=== PATIENT | female | born 2000 | race Caucasian/White ===

== ENCOUNTER → 2021-01-10 14:40 | Outpatient (CLI) | payer OTHER, SELFPAY | PROVIDERS: Visit Provider Nurse Practitioner Family | DX: Z20.822 Contact with and (suspected) exposure to COVID-19 (principal); U07.1 COVID-19 | CPT/HCPCS: C9803; U0003; U0005 ==

== ENCOUNTER → 2022-01-25 11:06 | Outpatient (CLI) | payer OTHER, SELFPAY | PROVIDERS: PCP Emergency Medicine; Visit Provider Nurse Practitioner Obstetrics & Gynecology | DX: Z32.01 Encounter for pregnancy test, result positive (principal) | CPT/HCPCS: 36415; 84702 ==

== ENCOUNTER → 2022-02-10 06:45 | Outpatient (CLI) | payer OTHER, SELFPAY ==
[2022-02-14 21:26] LABS: Neisseria gonorrhoeae, NAA Negative (Negative)
== END ==
PROVIDERS: PCP Nurse Practitioner Obstetrics & Gynecology; Visit Provider Nurse Practitioner Obstetrics & Gynecology
DX: Z34.90 Encounter for supervision of normal pregnancy, unspecified, unspecified trimester (principal)
CPT/HCPCS: 87491; 87591

== ENCOUNTER → 2022-02-15 12:31 | Outpatient (CLI) | payer OTHER, SELFPAY ==
--- NOTE | 2022-02-15 12:32 | US_ITS ---
FINAL REPORT CLINICAL HISTORY: for dates FINDINGS: Sonographic images of the pelvis were obtained. A single, living intrauterine is noted. A yolk sac is present and measures 0.51 cm. [place] to rump length measures 26.5 mm which corresponds to 9 weeks 4 days gestation. Heartbeat is identified and measures 167 beats per minute. The right ovary measures 2.9 cm there is a 1.5 cm probable complex cyst in the right ovary. The left ovary is not visualized due to bowel gas. IMPRESSION: Single, living, intrauterine gestation with 9 weeks 4 days gestational age. Reviewed, Interpreted and Dictated by King Rogers III, MD Transcribed by Shanique Ellis Authenticated and [facility]
== END ==
LOC: RAD 12:32
PROVIDERS: PCP Emergency Medicine; Visit Provider Nurse Practitioner Obstetrics & Gynecology
DX: Z34.90 Encounter for supervision of normal pregnancy, unspecified, unspecified trimester (principal)
CPT/HCPCS: 76801

== ENCOUNTER → 2022-03-10 15:41 | Outpatient (CLI) | payer OTHER, BC, SELFPAY ==
[2022-03-10 16:52] LABS: Basophils % 0.3 % (0.1-2.0); Eosinophils # 0.1 K/mm3 (0.0-0.4); Eosinophils % 1.4 % (0.1-12.0); Hemoglobin 10.4 g/dL (12.2-16.2); Lymphocytes # 1.9 K/mm3 (0.7-4.5); Lymphocytes % 21.8 % (10-50); Mean Corpuscular HGB Conc 34.7 g/dL (31.8-35.4); Mean Corpuscular Hemoglobin 31.7 pg (27.0-31.2); Mean Corpuscular Volume 91.4 fl (81-99); Mean Platelet Volume 7.7 fl (7.4-10.4); Monocytes # 0.4 K/mm3 (0.1-1.0); Monocytes % 4.1 % (1.7-9.3); Neutrophils # 6.4 K/mm3 (1.8-7.8); Neutrophils % 72.4 % (37.0-80.0); Platelet Count 457 K/mm3 (142-424); Red Blood Count 3.28 M/mm3 (4.20-5.40); Red Cell Distribution Width 13.1 % (11.5-17.5); White Blood Count 8.9 K/mm3 (4.5-13.0)
[2022-03-12 06:31] LABS: Rubella Antibodies, IgG <0.90 index (Immune >0.99)
[2022-03-12 18:06] LABS: Rapid Plasma Reagin Ab Titer Non Reactive (NonRea<1:1)
[2022-03-16 23:35] LABS: HIV Screen 4th Generation wRfx NON REACTIVE; Hepatitis B Surface Antigen NEGATIVE; Hepatitis C Antibody <0.1
== END ==
PROVIDERS: PCP Emergency Medicine; Visit Provider Nurse Practitioner Obstetrics & Gynecology
DX: Z34.90 Encounter for supervision of normal pregnancy, unspecified, unspecified trimester (principal)
CPT/HCPCS: 36415; 85025; 86593; 86703; 86762; 86850; 87340; 87380; G0432

== ENCOUNTER → 2022-05-06 12:46 | Outpatient (CLI) | payer BC, SELFPAY ==
--- NOTE | 2022-05-06 12:46 | US_ITS ---
FINAL REPORT CLINICAL HISTORY: 20 week anatomy scan;; please use anatomy template when dictating COMPARISON: 02/15/2022 FINDINGS: There is a single live intrauterine gestation. Presentation is variable . The cervix is closed and measures 3.6 cm. Placenta is posterior. movement is noted. heart rate is noted to be 153 beats per minute. Three-vessel cord with satisfactory umbilical cord insertion. Four-chamber heart is noted. brain and ventricles are unremarkable. Chest and diaphragm are unremarkable. ABDOMEN: Both kidneys are unremarkable. Stomach is unremarkable. SPINE: No anomalies identified. Both arms and legs noted. AMNIOTIC FLUID: Appropriate amount. MEASUREMENTS: ULTRASOUND AGE: 21 weeks 0 days. GESTATION AGE: 21 weeks 5 days. ESTIMATED WEIGHT: 379 g GROWTH PERCENTILE: 10 % BPD: 5.0 cm consistent with 21 weeks 2 days. OFD: 6.5 cm consistent with 21 weeks 4 days. HC: 18.3 cm consistent with 20 weeks 5 days. AC: 15.4 cm consistent with 20 weeks 5 days. FL: 3.5 cm consistent with 21 weeks 1 days. CEREBELLUM: 2.0 cm consistent with 20 weeks 2 days. HUMERUS: 3.5 cm consistent with 22 weeks 0 days. HC/AC: 1.19 CI: 77% FL/BPD: 70% FL/AC: 23% IMPRESSION: Single living IUP with an ultrasound age of 21 weeks 0 days. Reviewed, Interpreted and Dictated by Olga Lidia Ribeiro MD Transcribed by Ethel Dixon Authenticated and . [facility]
== END ==
PROVIDERS: PCP Emergency Medicine; Visit Provider Nurse Practitioner Obstetrics & Gynecology
DX: Z34.90 Encounter for supervision of normal pregnancy, unspecified, unspecified trimester (principal); Z3A.20 20 weeks gestation of pregnancy
CPT/HCPCS: 76811

== ENCOUNTER → 2022-06-20 11:24 | Outpatient (CLI) | payer BC, SELFPAY | PROVIDERS: PCP Emergency Medicine; Visit Provider Nurse Practitioner Obstetrics & Gynecology | DX: Z34.90 Encounter for supervision of normal pregnancy, unspecified, unspecified trimester (principal) ==

== ENCOUNTER → 2022-06-21 08:37 | Outpatient (CLI) | payer BC, SELFPAY ==
[2022-06-21 09:15] LABS: Glucose,Fasting 79 mg/dl (74-100)
[2022-06-21 10:24] LABS: Glucose 1 Hour 111 mg/dL (74-100)
== END ==
PROVIDERS: PCP Emergency Medicine; Visit Provider Nurse Practitioner Obstetrics & Gynecology
DX: Z34.90 Encounter for supervision of normal pregnancy, unspecified, unspecified trimester (principal); Z3A.27 27 weeks gestation of pregnancy
CPT/HCPCS: 36415; 82951

== ENCOUNTER 2022-07-06 09:48 | Outpatient (CLI) | payer BC, SELFPAY ==
[2022-07-06 11:50] VITALS: BP 112/67; PULSE 79; RESP 20; TEMP 36.7; O2SAT 99
== END 2022-07-06 12:38 | disposition home or self-care (01) ==
LOC: INF 09:48
PROVIDERS: PCP Emergency Medicine; Visit Provider Nurse Practitioner Obstetrics & Gynecology
DX: O26.899 Other specified pregnancy related conditions, unspecified trimester (principal); Z67.91 Unspecified blood type, Rh negative
CPT/HCPCS: 36415; 96372; J2790

== ENCOUNTER → 2022-08-16 23:40 | Outpatient (CLI) | payer BC, SELFPAY | PROVIDERS: PCP Emergency Medicine; Visit Provider Nurse Practitioner Obstetrics & Gynecology | DX: Z34.93 Encounter for supervision of normal pregnancy, unspecified, third trimester (principal); Z3A.35 35 weeks gestation of pregnancy | CPT/HCPCS: 86403 ==

== ENCOUNTER 2022-09-14 04:57 | Inpatient (IN) | payer BC, SELFPAY ==
[2022-09-14 05:00] VITALS: BMI 35.3
[2022-09-14 05:35] LABS: Coronavirus 19, PCR Not Detected (NotDetected); Influenza A, PCR Not Detected (NotDetected); Influenza B, PCR Not Detected (NotDetected); Microscopic, Urine URINE MICROSCOPIC (MICROSCOPIC)
[2022-09-14 05:38] LABS: Basophils % 0.2 % (0.1-2.0); Eosinophils # 0.1 K/mm3 (0.0-0.4); Eosinophils % 1.2 % (0.1-12.0); Hematocrit 33.5 % (37.0-47.0); Hemoglobin 10.7 g/dL (12.2-16.2); Lymphocytes # 1.8 K/mm3 (0.7-4.5); Lymphocytes % 20.3 % (10-50); Mean Corpuscular HGB Conc 32.1 g/dL (31.8-35.4); Mean Corpuscular Hemoglobin 30.3 pg (27.0-31.2); Mean Corpuscular Volume 94.5 fl (81-99); Mean Platelet Volume 8.8 fl (7.4-10.4); Monocytes # 0.5 K/mm3 (0.1-1.0); Monocytes % 5.9 % (1.7-9.3); Neutrophils # 6.3 K/mm3 (1.8-7.8); Neutrophils % 72.4 % (37.0-80.0); Platelet Count 311 K/mm3 (142-424); Red Blood Count 3.55 M/mm3 (4.20-5.40); Red Cell Distribution Width 14.2 % (11.5-17.5); White Blood Count 8.7 K/mm3 (4.5-13.0)
[2022-09-14 05:39] LABS: Appearance,Urine SL CLOUDY (Clear); Bilirubin,Urine Negative (Negative); Blood, Urine Negative (Negative); Color,Urine YELLOW (Yellow); Glucose,Urine (UA) TRACE (Negative); Ketones,Urine TRACE (Negative); Leukocyte Esterase,Urine 1+ (Negative); Nitrate,Urine Negative (Negative); Protein,Urine TRACE (Negative); Specific Gravity, Urine 1.025 (1.005-1.030)
[2022-09-14 05:47] VITALS: BP 151/75; PULSE 114; RESP 18; TEMP 36.6; O2SAT 98; BMI 35.3
[2022-09-14 05:49] LABS: Bacteria,Urine 1+ /lpf
[2022-09-14 05:50] LABS: Amphetamine/Metha Screen,Urine Negative ng/ml (<1000)
[2022-09-14 05:51] LABS: Barbiturates Screen,Urine Negative ng/ml (<200)
[2022-09-14 05:52] LABS: Benzodiazepines Screen,Urine Negative ng/ml (<200); Cannabinoid Screen,Urine Negative ng/ml (<50)
[2022-09-14 05:53] LABS: Cocaine Screen,Urine Negative ng/ml (<300)
[2022-09-14 05:54] LABS: Methadone Screen,Urine Negative ng/ml (<300); Opiate Screen,Urine Negative ng/ml (<300)
[2022-09-14 05:55] LABS: Phencyclidine Screen,Urine Negative ng/ml (<25)
--- NOTE | 2022-09-14 07:08 | HMH.PHAINT1 ---
Pharmacy Intervention Comments: MEDICATION RECONCILIATION COMPLETED ON PATIENT USING EXTERNAL FILL HISTORY FROM PHARMACY. -MARISEL NUÑEZ, ALEXIAD
--- NOTE | 2022-09-14 08:38 | EXP.HP ---
History of Present Illness *Admission Date: 09/14/22 *Reason for visit:: Term *History of present illness: She is a 21-year-old 1 para 0 at 39+ weeks gestational age. She elected for induction of labor at term. [facility] Disclaimer: The information contained in this section may have been updated after the patient was seen, as this information can be updated by other users. Medical History (Updated 09/14/22 @ 08:40 by Flako Mendoza MD) Rh negative status during Surgical History No history of previous surgery Family History Hypertension Thyroid disorder Asthma Social History Smoking Status: Never smoker alcohol intake: never substance use type: denies use current occupational status: unemployed Travel in the last 8 weeks: None household members: family housing: house Review of Systems Review of Systems Review of systems:: pertinent systems reviewed and negative unless documented below Meds Home Medications and Allergies Home Medications Medication Instructions Recorded Confirmed Type ferrous sulfate 325 mg (65 mg 325 mg PO DAILY Supplement 07/06/22 09/14/22 History iron) tablet vit no.95-ferrous 1 tab PO DAILY Supplement 09/14/22 09/14/22 History fumarate 28 mg-folic acid 800 mcg tablet () New Prescriptions to Start Prescriptions: Allergies Allergy/AdvReac Type Severity Reaction Status Date / Time No Known Allergies Allergy Verified 09/07/22 09:38 Exam Data for Last 24 hours Vital signs and Labs for Last 24 Hours: Temp Pulse Resp BP Pulse Ox O2 Del Method 97.9 F 114 H 18 151/75 H 98 Room Air 09/14/22 05:47 09/14/22 05:47 09/14/22 05:47 09/14/22 05:47 09/14/22 05:47 09/14/22 05:47 Laboratory Results - last 24 hr 09/14/22 05:30: WBC 8.7, RBC 3.55 L, Hgb 10.7 L, Hct 33.5 L, MCV 94.5, MCH 30.3, MCHC 32.1, RDW 14.2, Plt Count 311, MPV 8.8, Neut % (Auto) 72.4, Lymph % (Auto) 20.3, Hardy % (Auto) 5.9, Eos % (Auto) 1.2, Baso % (Auto) 0.2, Neut # (Auto) 6.3, Lymph # (Auto) 1.8, Hardy # (Auto) 0.5, Eos # (Auto) 0.1, Baso # (Auto) 0.0, Urine Color Yellow, Urine Appearance Sl cloudy, Urine pH 6.0, Ur Specific [place] 1.025, Urine Protein Trace, Urine Glucose (UA) Trace, Urine Ketones Trace, Urine Blood Negative, Urine Nitrate Negative, Urine Bilirubin Negative, Urine Urobilinogen 2.0, Ur Leukocyte Esterase 1+ A, Urine RBC None, Urine WBC 5-10, Ur Squamous Epith Cells 10-20, Urine Bacteria 1+, Urine Opiates Screen Negative, Urine Methadone Screen Negative, Ur Barbituates Screen Negative, Ur Phencyclidine Scrn Negative, Ur Amphetamines Screen Negative, U Benzodiazepines Scrn Negative, Urine Cocaine Screen Negative, U Marijuana (THC) Screen Negative, SARS-CoV-2 (PCR) Not detected, Influenza A Untype (PCR) Not detected, Influenza Type B (PCR) Not detected, Blood Type A Negative, Antibody Screen Negative I & O for Last 24 hours: Intake & Output 09/11/22 09/12/22 09/13/22 09/14/22 11:59 11:59 11:59 11:59 Weight 219 lb Constitutional Constitutional: no acute distress *Routine HEENT Exam Head: Present normocephalic Eye: Present EOMI and PERRL ENT: Present mucous membranes moist *Routine Neck Exam Neck: Present supple; Absent lymphadenopathy *Routine Respiratory Exam Respiratory: Present CTA bilaterally *Routine Cardiovascular Exam Cardiovascular: Present RRR *Routine Abdominal Exam Abdominal: Present soft and normoactive bowel sounds; Absent tenderness *Routine Rectal Exam Rectal:: deferred *Routine Genitalia Exam Genitalia:: deferred *Routine Extremities Exam Extremities: Absent cyanosis, clubbing or edema *Routine Skin Exam Skin: Present warm; Absent rash *Routine Neurological Exam Neurological: Present alert and oriented X3 Assessment and Plan *Assess
--- NOTE | 2022-09-14 10:41 | EXP.LABOR.NO ---
Labor Note Subjective: Date: 09/14/22 Time: 10:41 regular contraction Objective: NST:: Reactive Contractions:: every 2-3 minutes Cervical Dilation:: 9-10 Effacement:: 100% Station: +2 Membranes: artificially ruptured Fetus: Monitoring?: Yes monitoring type:: External Assessment: Labor progressing?: Yes Cephalopelvic disproportion?: No Plan: Anesthesia for epidural?: Yes Continue to labor down?: Yes Plan for ?: No Continue to monitor?: Yes Comment:: She is fully dilated +2. Nonstress test is reactive. We will expect a vaginal delivery. We will go ahead and start her pushing.
--- NOTE | 2022-09-14 13:41 | P.PCN_ITS ---
Delivery Note Delivery Date:: 09/14/22 Delivery Time:: 10:58 Anesthesia Type: Epidural Was labor medically induced?: Yes Induction method: per pitocin protocol Infant delivered prior to 39 weeks?: No at 1 minute: 8 at 5 minutes: 9 LAC or MLE?: LAC Delivery Procedure:: She was admitted for induction of labor at term. She was started on IV oxytocin. Under labor epidural progressed to full dilation and delivered spontaneously a liveborn male child at 10:58 AM on the morning of September 14, 2022. On delivery the head it was noted that there was a loose nuchal cord. This was easily reduced. This was followed by delivery of the anterior shoulder and the rest the 's body atraumatically. The baby was vigorous and cried spontaneously. The oropharynx and nasopharynx were bulb suction. We allowed the cord to continue to pulsate for approximately 1 minute. The cord was then doubly clamped and cut and the infant was placed on the mother's abdomen for further care. She received IV oxytocin using gentle traction the cord and countertraction the fundus I was able to easily deliver the placenta intact. It had a normal three- vessel cord. There was a small second-degree perineal laceration that was repaired in the usual fashion with 3-0 Vicryl Rapide suture to the tissues of the vagina and 2-0 Vicryl suture to the deep tissues of the perineum. Estimated blood loss was approximately 300 cc. Laceration:: vaginal Placental Delivery Description: Spontaneous
--- NOTE | 2022-09-14 15:53 | EXP.ANES.CKL ---
[facility] Disclaimer: The information contained in this section may have been updated after the patient was seen, as this information can be updated by other users. Medical History (Updated 09/14/22 @ 08:40 by Flako Mendoza MD) Rh negative status during Surgical History No history of previous surgery Family History Hypertension Thyroid disorder Asthma Social History Smoking Status: Never smoker alcohol intake: never substance use type: denies use current occupational status: unemployed Travel in the last 8 weeks: None household members: family housing: house [facility] Anesthesia Checklist Patient Identification Patient Identification: Arm Band and Family Structural Data Admitted From: Home Planned Operative Procedure/s: term for delivery Verified Documents: Surgical Consent and History and Physical NPO Status Verified Time NPO: 00:00 Additional verifications Patient : Yes Anesthesia Reactions: No Hx Blood Transfusions: No Blood Transfusion Reaction: No Cephalosporin Allergy: No Previous Colonoscopy: No Airway Assessment C-Spine Mobility Assessed: Yes TMJ Mobility Assessed: Yes Dentition: Good Dentition Neurological Assessment Level of Consciousness: Awake, Alert, Appropriate and Follows Commands Hx Seizures: No Numbness or tingling in extremities: No Anesthesia Plan ASA Class: I Anesthesia Type: Epidural Preoperative Comments Pre-Operative Comments: Epidural for labor
[2022-09-14 20:40] VITALS: BP 128/67; PULSE 109; RESP 18; TEMP 37.1; O2SAT 99
[2022-09-15 00:08] VITALS: BP 112/58; PULSE 100; RESP 18; TEMP 36.9
[2022-09-15 04:18] VITALS: BP 98/55; PULSE 89; RESP 17; TEMP 36.8; O2SAT 98
[2022-09-15 07:52] LABS: Hematocrit 29.2 % (37.0-47.0); Hemoglobin 9.3 g/dL (12.2-16.2)
[2022-09-15 08:30] VITALS: BP 118/65; PULSE 96; RESP 18; TEMP 36.9
--- NOTE | 2022-09-15 16:09 | EXP.ACUTE.PN ---
Subjective *Date: 09/15/22 *Time: 08:30 Interval history: She is doing very well this morning. She is eating and drinking and ambulating. She is bottlefeeding. Her lochia is normal. She denies any pain. Medical Exam Vital signs and Labs for Last 24 Hours: Vital Signs Temp Pulse Resp BP Pulse Ox O2 Del Method 09/15/22 08:30 98.5 F 96 H 18 118/65 09/15/22 04:18 98.3 F 89 17 98/55 L 98 Room Air 09/15/22 00:08 98.4 F 100 H 18 112/58 L 09/14/22 20:40 98.8 F 109 H 18 128/67 99 Room Air Laboratory Results - last 24 hr 09/15/22 06:40: Hgb 9.3 L, Hct 29.2 L, Screen TNP, Baby's Rh Status Negative, Rhogam Infusion TNP I & O for Labs for Last 24 Hours: Intake & Output 09/13/22 09/14/22 09/15/22 09/16/22 11:59 11:59 11:59 11:59 Weight 219 lb Microbiology Reports for the Last 24 Hours: Microbiology 09/14/22 05:30 Urine,Clean Catch Urine Culture - Preliminary Head: Present atraumatic Eyes: Present as per HPI ENT: Present normal exam Neck: Present normal inspection Respiratory: Present normal respiratory effort; Absent accessory muscle use Assessment and Plan *Assessment and plan (1) Rh negative status during : Status: Acute Qualifiers: Trimester: unspecified trimester Qualified Code(s): O26.899 - Other specified related conditions, unspecified trimester; Z67.91 - Unspecified blood type, Rh negative Category: Medical Code(s): O26.899 - Other specified related conditions, unspecified trimester; Z67.91 - Unspecified blood type, Rh negative (2) Normal delivery: Status: Acute Category: Medical Code(s): O80 - Encounter for full-term uncomplicated delivery Plan She is doing very well. We will plan to discharge her home tomorrow.
[2022-09-15 20:12] VITALS: BP 119/71; PULSE 100; RESP 17; TEMP 36.9; O2SAT 100
[2022-09-16 04:03] VITALS: BP 105/63; PULSE 97; RESP 17; TEMP 36.8; O2SAT 99
--- NOTE | 2022-09-16 09:33 | SW/DCPLANNER ---
Addendum entered by Ijeoma Meier 09/20/22 09:52: Infant cord screen is NEGATIVE. Original Note: I received a referral on this patient regarding THC use during . Patient tested positive for marijuana on . Patient was negative on: 08/02/2022, 09/14/2022 and at admission. urine drug screen is negative. Infant male (Jaqueline Holley) was born on 09/14/2021. 's father (Lavelle Holley 09/22/00) was not present during my visit but is involved with infant per patient. Patient will reside at [address] [place] [address] in [facility], Lavelle and her parents (Norbert and aTnja Stokes). Patient will be contacting [facility] for an appointment today and is interested in HANDS program. I will make contact w/ L Yogesh hernadez/ [facility] to set patient up w/ program. Patient stated that she has the following items at home: crib, carseat, clothing, diapers and will be bottle feeding. Patient will have transportation to all follow up appointments. PED MD is Dr Mcnamara. OB staff (Fifi) stated that patient is appropriate with infant. Patient and infant will discharge home today 09/16/2022.
--- NOTE | 2022-09-16 11:08 | EXP.DC.SUM ---
General Admission date:: 09/14/22 Discharge date: 09/16/22 HPI HPI HPI: She is a 21-year-old 1 para 0 at 39+ weeks gestational age. She elected for induction of labor at term. Hospital Course Hospital Course Hospital Course: course uneventful She is discharged home on PPD #2 in stable condition She is tolerating a regular diet, ambulating and voiding without difficulty Lochia has been light and she is asymptomatic with [id number] anemia Hgb is 9.3 following delivery (10.7 at admission) Rhogam was deferred because infant is A Neg Exam Data for Last 24 hours Vital signs and Labs for Last 24 Hours: Temp Pulse Resp BP Pulse Ox O2 Del Method 98.3 F 97 H 17 105/63 L 99 Room Air 09/16/22 04:03 09/16/22 04:03 09/16/22 04:03 09/16/22 04:03 09/16/22 04:03 09/16/22 04:03 I & O for Last 24 hours: Intake & Output 09/13/22 09/14/22 09/15/22 09/16/22 11:59 11:59 11:59 11:59 Weight 219 lb Microbiology Reports for the Last 24 Hours: Microbiology 09/14/22 05:30 Urine,Clean Catch Urine Culture - Final Multiple organisms, suggests contamination. Constitutional Constitutional: no acute distress *Routine HEENT Exam Head: Present normocephalic Eye: Absent conjunctival icterus or scleral injection ENT: Present mucous membranes moist *Routine Neck Exam Neck: Present supple *Routine Respiratory Exam Respiratory: Present CTA bilaterally *Routine Cardiovascular Exam Cardiovascular: Present RRR *Routine Abdominal Exam Abdominal: Present soft; Absent tenderness or distended *Routine Rectal Exam Patient deferred: visual exam and digital exam *Routine Exam Patient deferred: external exam Comments: Fundus firm below umbilicus *Routine Extremities Exam Extremities: Present edema *Routine Neurological Exam Neurological: Present alert and oriented X3 Routine Psychiatric Exam Psychiatric: Present normal affect; Absent depressed DS: Diagnosis Discharge Diagnosis (1) Normal delivery: Status: Acute Code(s): O80 - Encounter for full-term uncomplicated delivery (2) Rh negative status during : Status: Acute Code(s): O26.899 - Other specified related conditions, unspecified trimester; Z67.91 - Unspecified blood type, Rh negative Qualifiers: Trimester: unspecified trimester Qualified Code(s): O26.899 - Other specified related conditions, unspecified trimester; Z67.91 - Unspecified blood type, Rh negative Meds Home Medications and Allergies Home Medications Medication Instructions Recorded Confirmed Type ferrous sulfate 325 mg (65 mg 325 mg PO DAILY Supplement 07/06/22 09/14/22 History iron) tablet vit no.95-ferrous 1 tab PO DAILY Supplement 09/14/22 09/14/22 History fumarate 28 mg-folic acid 800 mcg tablet () ibuprofen 400 mg tablet 800 mg PO Q6HP PRN Mild To 09/16/22 Rx Moderate Pain (1-6) #30 tabs New Prescriptions to Start Prescriptions: Rosalina Meek Allergies Allergy/AdvReac Type Severity Reaction Status Date / Time No Known Allergies Allergy Verified 09/07/22 09:38 Discharge Plan Disposition Patient Disposition: Home, Self-Care Discharge Order Discharge Orders: Discharge Order (Routine); Ordered 09/16/22 Ordered By: Rosalina Bower Follow up Plan Follow up with: Flaok Mendoza MD [Staff Physician] - 09/28/22 10:45 am Prescriptions/Medication Reconciliation: New ibuprofen 400 mg Tablet 800 mg PO Q6HP PRN (Reason: Mild To Moderate Pain (1-6)) Qty: 30 0RF Continued ferrous sulfate 325 mg (65 mg iron) tablet 325 mg PO DAILY PNV cmb#95-ferrous fumarate-FA [] 28 mg iron- 800 mcg Tablet 1 tab PO DAILY Problem Reconciliation Problems Reviewed?: Yes Patient Discharge Instructions ACTIVITY: Continue current activity DIET: regular diet Pat
== END 2022-09-16 12:04 | disposition home or self-care (01) | DRG 807 ==
PROVIDERS: Admitting Provider Nurse Practitioner Obstetrics & Gynecology; PCP Emergency Medicine; Visit Provider Nurse Practitioner Obstetrics & Gynecology
DX: O69.81X0 Labor and delivery complicated by cord around neck, without compression, not applicable or unspecified (principal); Z37.0 Single live birth; Z3A.39 39 weeks gestation of pregnancy; O70.1 Second degree perineal laceration during delivery
CPT/HCPCS: 59409; 36415; 59025; 80305; 81001; 85014; 85018; 85025; 86850; 87086; 87636; 90707; 94761; G0283

== ENCOUNTER 2022-09-16 20:12 | Emergency (ER) | payer BC, SELFPAY ==
[2022-09-16 20:13] VITALS: BP 126/81; PULSE 75; RESP 16; TEMP 36.7; O2SAT 98; BMI 36.6
--- NOTE | 2022-09-16 20:27 | HMH.EDDENT ---
Discharge Plan Disposition Patient Disposition: Home, Self-Care Prescriptions Prescriptions: New amoxicillin-pot clavulanate [Augmentin] 500-125 mg tablet 1 tab PO TID Qty: 30 0RF ibuprofen 600 mg tablet 600 mg PO Q6H PRN (Reason: pain) Qty: 40 0RF acetaminophen [Tylenol Extra Strength] 500 mg tablet 500 mg PO Q4H PRN (Reason: fever) Qty: 40 0RF No Action ferrous sulfate 325 mg (65 mg iron) tablet 325 mg PO DAILY PNV cmb#95-ferrous fumarate-FA [] 28 mg iron- 800 mcg Tablet 1 tab PO DAILY ibuprofen 400 mg Tablet 800 mg PO Q6HP PRN (Reason: Mild To Moderate Pain (1-6)) Qty: 30 0RF Referrals Follow up/Referrals: Kwabena Tierney MD [Primary Care Provider] - See instructions Clinical Impressions Clinical Impression: Dental caries Discharge ED Provider: Lilly Armendariz HPI General Chief complaint: Dental/Oral Stated complaint: tooth and jaw pain Time Seen by Provider: 09/16/22 20:19 Mode of Arrival: Ambulatory Source of Information: Patient and Relative Limitations: No Limitations Description of Symptoms (Recalled from ER Triage Doc. by RN): patient ambulatory to ED via POV for upper right side tooth/jaw pain. Pain intermittent for approx 3 weeks now, but unable to see dentist for issue. Pain increased this evening without relief of medication. Patient took 500 tylenol, 800 ibuprofen within past 6 hours for pain. History of Present Illness HPI Narrative: Patient is a 21-year-old female who is here secondary to right upper tooth ache. Patient stated the tooth pain has been going on for the past 3 weeks and just got worse today. She has no fevers and chills. She said that it is her third molar from the back. Patient stated that cold is making it worse heat makes it better. Patient has some cavities in the lower teeth in the past. There is been no trauma to the teeth MD Complaint: tooth pain Location: Tooth # 1. Tooth ache Onset (ago): hour(s) Duration: constant Severity: moderate Severity scale (1-10): 8 Relieving factors: NSAIDs Exacerbating factors: cold Context: history of dental caries Treatment prior to arrival: none Related Data Home Medications Medication Instructions Recorded Confirmed ferrous sulfate 325 mg (65 mg 325 mg PO DAILY Supplement 07/06/22 09/14/22 iron) tablet vit no.95-ferrous 1 tab PO DAILY Supplement 09/14/22 09/14/22 fumarate 28 mg-folic acid 800 mcg tablet () Previous Rx's Medication Instructions Recorded acetaminophen 500 mg tablet 500 mg PO Q4H PRN fever #40 tabs 09/16/22 (Tylenol Extra Strength) amoxicillin 500 mg-potassium 1 tab PO TID #30 tabs 09/16/22 clavulanate 125 mg tablet (Augmentin) ibuprofen 400 mg tablet 800 mg PO Q6HP PRN Mild To 09/16/22 Moderate Pain (1-6) #30 tabs ibuprofen 600 mg tablet 600 mg PO Q6H PRN pain #40 tabs 09/16/22 Allergies Allergy/AdvReac Type Severity Reaction Status Date / Time No Known Allergies Allergy Verified 09/07/22 09:38 [facility] Disclaimer: The information contained in this section may have been updated after the patient was seen, as this information can be updated by other users. Medical History (Updated 09/16/22 @ 20:31 by Lilly Armendariz MD) Rh negative status during Surgical History No history of previous surgery Family History Other Asthma Hypertension Thyroid disorder Social History Smoking Status: Never smoker alcohol intake: never substance use type: denies use current occupational status: unemployed Travel in the last 8 weeks: None household members: family housing: house ROS Obtained: Yes All systems reviewed & no additional complaints except as documented ENT Ears, Nose, Mouth, and Throat: Reports otalgia Physic
[2022-09-16 20:37] VITALS: BP 126/81; PULSE 95; RESP 16; TEMP 36.7; O2SAT 100
== END 2022-09-16 20:40 | disposition home or self-care (01) ==
PROVIDERS: Emergency Provider Emergency Medicine; PCP Emergency Medicine
DX: R68.84 Jaw pain (principal)
CPT/HCPCS: 99283; 99284

== ENCOUNTER 2023-03-28 21:12 | Outpatient (CLI) | payer BC, SELFPAY | END 2023-03-28 23:59 | LOC: LAB.DROPOF 21:12 | PROVIDERS: PCP Student in an Organized Health Care Education/Training Program; Visit Provider Student in an Organized Health Care Education/Training Program | DX: J02.9 Acute pharyngitis, unspecified (principal); R05.1 Acute cough; M54.50 Low back pain, unspecified; N39.0 Urinary tract infection, site not specified; B96.89 Other specified bacterial agents as the cause of diseases classified elsewhere | CPT/HCPCS: 87070; 87086; 87635 ==

== ENCOUNTER 2023-05-12 19:53 | Outpatient (CLI) | payer BC, SELFPAY ==
[2023-05-12 19:14] LABS: Basophils % 0.4 % (0.1-2.0); Eosinophils # 0.1 K/mm3 (0.0-0.4); Eosinophils % 1.7 % (0.1-12.0); Hematocrit 40.6 % (37.0-47.0); Lymphocytes # 1.7 K/mm3 (0.7-4.5); Lymphocytes % 25.6 % (10-50); Mean Corpuscular Hemoglobin 30.7 pg (27.0-31.2); Mean Corpuscular Volume 95.8 fl (81-99); Mean Platelet Volume 9.5 fl (7.4-10.4); Monocytes # 0.4 K/mm3 (0.1-1.0); Monocytes % 6.6 % (1.7-9.3); Neutrophils # 4.3 K/mm3 (1.8-7.8); Neutrophils % 65.7 % (37.0-80.0); Platelet Count 416 K/mm3 (142-424); Red Blood Count 4.24 M/mm3 (4.20-5.40); Red Cell Distribution Width 13.9 % (11.5-17.5); White Blood Count 6.6 K/mm3 (4.8-10.8)
[2023-05-12 19:35] LABS: Alanine Aminotransferase 57 U/L (12-78); Albumin Level 4.8 g/dl (3.5-5.0); Albumin/Globulin Ratio 1.6 (1.1-1.8); Alkaline Phosphatase 88 U/L (38-126); Anion Gap 15.6 mEq/L (5-15); Aspartate Amino Transferase 46 U/L (14-36); Bilirubin,Total 0.4 mg/dl (0.2-1.3); Blood Urea Nitrogen 13 mg/dl (7-17); Calcium 9.8 mg/dl (8.4-10.2); Carbon Dioxide 25 mmol/L (22.0-30.0); Chloride 108 mmol/L (98-107); Estimated Glomerular Filt Rate 106 ml/min (>60); GFR (African American) 128 ML/MIN (>60); Glucose 99 mg/dl (74-100); Potassium 4.6 mmoL/L (3.5-5.1); Sodium 144 mmol/L (136-145); Total Protein,Serum 7.8 g/dl (6.3-8.2)
[2023-05-12 20:36] LABS: Iron 66 ug/dL (37-170)
[2023-05-12 20:38] LABS: HCG Qualitative, Serum Negative (Negative)
[2023-05-12 20:46] LABS: Total Iron Binding Capacity 378 ug/dL (265-497)
[2023-05-12 20:55] LABS: 25-OH Vitamin D, Total 31.3 ng/mL (30-100)
[2023-05-12 21:13] LABS: Ferritin 22.9 ng/ml (6.24-137)
== END 2023-05-12 23:59 ==
LOC: LAB.DROPOF 19:53
PROVIDERS: PCP Student in an Organized Health Care Education/Training Program; Visit Provider Student in an Organized Health Care Education/Training Program
DX: R10.2 Pelvic and perineal pain (principal); N91.2 Amenorrhea, unspecified; D64.9 Anemia, unspecified; Z13.21 Encounter for screening for nutritional disorder; R10.9 Unspecified abdominal pain; Z13.29 Encounter for screening for other suspected endocrine disorder
CPT/HCPCS: 80053; 82306; 82728; 83540; 83550; 84443; 84703; 85025; 87086

== ENCOUNTER 2023-05-18 15:50 | Outpatient (CLI) | payer BC, SELFPAY ==
--- NOTE | 2023-05-18 15:54 | US_ITS ---
PROCEDURE: US TRANSVAGINAL CLINICAL INDICATION: pelvic pain COMPARISON: No exams were available for comparison FINDINGS: Transvaginal sonographic images of the pelvis were obtained. UTERUS: 7.5cm x 4.4cmx 3.1cm anteverted with a combined endometrial thickness of 3.4mm. LEFT OVARY: 1.5cmx3.3cmx3.3cm with a volume of 6.8ml. Left ovary appears polycystic. Largest follicle measures 0.8 cm. RIGHT OVARY: 3.7 cmx 2.7cmx2.0 cm with a volume of 10ml. Right ovary appears polycystic. The largest follicle measures 1.0 cm. Both ovaries are seen and appear normal. Doppler flow to both ovaries are seen. There is no fluid in the cul-de-sac. IMPRESSION: 1. Anteverted uterus normal in shape and size. The endometrium is thin. 2. Both ovaries are seen and appear polycystic with multiple peripheral small follicles. 3. No fluid in the cul-de-sac. Dictated by: Flako Mendoza MD 05/19/2023 03:24 Flako Mendoza MD in OV 05/19/2023 03:24
== END 2023-05-18 23:59 ==
LOC: RAD 15:51
PROVIDERS: PCP Physician Assistant; Visit Provider Student in an Organized Health Care Education/Training Program
DX: R10.2 Pelvic and perineal pain (principal)
CPT/HCPCS: 76830

== ENCOUNTER 2024-09-18 11:30 | Outpatient (CLI) | payer BC, SELFPAY | END 2024-09-18 23:59 | disposition home or self-care (01) | LOC: LAB.DROPOF 09-19 10:19 | PROVIDERS: PCP Nurse Practitioner Family; Visit Provider Nurse Practitioner Family | DX: N39.0 Urinary tract infection, site not specified (principal) | CPT/HCPCS: 87086 ==